=== PATIENT | male | born 1970 | race Caucasian/White ===

== ENCOUNTER 2022-08-22 09:19 | Emergency (ER) | payer OTHER ==
[2022-08-22 09:28] VITALS: BP 116/86; PULSE 69; RESP 16; TEMP 97.8; BMI 29.8
[2022-08-22] MEDS ORDERED: LIDOCAINE 5% TOPICAL PATCH TP ONE (09:43)
[2022-08-22] MEDS ORDERED: KETOROLAC TROMETHAMINE 30 MG/1 ML VIAL IM ONE (09:43)
[2022-08-22] MEDS ORDERED: LIDOCAINE 5% TOPICAL PATCH ONE (09:52)
[2022-08-22] MEDS ORDERED: KETOROLAC TROMETHAMINE 30 MG/1 ML VIAL ONE (09:52)
[2022-08-22] MEDS ORDERED: LIDOCAINE PATCH REMOVAL MC ONE (22:00)
== END 2022-08-22 10:55 | disposition home or self-care (01) ==
LOC: JER 09:19
PROC: 3E0233Z Introduction of Anti-inflammatory into Muscle, Percutaneous Approach (ICD-10-PCS; principal; 2022-08-22)
DX: R07.89 Other chest pain (principal); R07.81 Pleurodynia; X50.0XXA Overexertion from strenuous movement or load, initial encounter
CPT/HCPCS: 71101-TC-LT-FY; 93005; 93010; 99284-25

== ENCOUNTER 2024-07-11 05:20 | Day surgery (SDC) | payer OTHER, BC ==
[2024-07-11] MEDS: LIDOCAINE 1% P/F 10 MG/ML VIAL INF ONE (09:08)
[2024-07-11] MEDS: IOHEXOL 180 MG/1 ML ML IJ ONE (09:09)
[2024-07-11] MEDS: DEXAMETHASONE SOD PHOSPHATE 10 MG/1 ML VIAL IM ONE (09:09)
[2024-07-11] MEDS ORDERED: ACETAMINOPHEN 500 MG TABLET (FP) PO PRN (09:11)
[2024-07-11 10:33] VITALS: BP 127/86; PULSE 84; RESP 18; TEMP 97.8
== END 2024-07-11 09:50 | disposition home or self-care (01) ==
LOC: JASU-SURG 05:20
PROVIDERS: ATTEND Pain Medicine Pain Medicine
PROC: 3E0R3BZ Introduction of Anesthetic Agent into Spinal Canal, Percutaneous Approach (ICD-10-PCS; 2024-07-11)
PROC: 3E0R33Z Introduction of Anti-inflammatory into Spinal Canal, Percutaneous Approach (ICD-10-PCS; principal; 2024-07-11 09:05)
DX: M54.16 Radiculopathy, lumbar region (principal)
CPT/HCPCS: 76000-TC-FY; J1100